=== PATIENT | female | born 2000 | race African-American/Black ===

== ENCOUNTER 2021-03-25 19:21 | Emergency (ER) | payer OTHER ==
[~2021-03-25] VITALS: Ht 160 cm; Wt 68.2 kg
[2021-03-25 19:26] VITALS: TEMP 98
[2021-03-25 19:42] VITALS: BP 126/71; PULSE 81
[2021-03-25] MEDS ORDERED: ATARAX 25MG25 MG/TAB PO (19:59)
[2021-03-25] MEDS ORDERED: TRIAMCINOLONE A15 G1 TP (19:59)
== END 2021-03-25 20:06 | disposition home or self-care (01) ==
LOC: COL.ER 19:21
DX: L50.9 Urticaria, unspecified (principal)